=== PATIENT | male | born 1940 | race Caucasian/White ===

== ENCOUNTER 2023-09-20 09:52 | Day surgery (SDC) | payer MEDICARE ==
[2023-09-19 09:31] VITALS: BMI 20.9
[~2023-09-20 09:52] MED LIST: ALPRAZolam 0.25 MG TAB PO PRN; ALPRAZolam 0.5 MG TAB PO PRN; NITROGLYCERIN SL TABS 0.4 MG TAB SUBLINGUAL PRN
[2023-09-20 10:22] LABS: Glucose,Whole Blood 193 mg/dL (70-110)
[2023-09-20] MEDS: SODIUM CHLORIDE 0.9% 1,000 ML in EMPTY BAG 1 BAG IV SCH (10:23)
[2023-09-20] MEDS: IV FLUID CONTINUATION 1,000 ML IV ONE (10:23)
[2023-09-20 10:34] LABS: Basophils # (A) 0.1 k/uL (0-0.2); Basophils % (A) 2 %; Eosinophils # (A) 0.2 k/uL (0-0.7); Eosinophils % (A) 4 %; HCT 37.3 % (39.0-53.0); Lymphocytes # (A) 0.8 k/uL (1.0-4.8); Lymphocytes % (A) 13 %; MCH 31.4 pg (25.0-35.0); MCHC 32.1 g/dL (31.0-37.0); MCV 97.9 fL (80.0-100.0); Mean Platelet Volume 8.1; Monocytes # (A) 0.4 k/uL (0-1.0); Monocytes % (A) 6 %; Neutrophils # (A) 4.2 k/uL (1.3-7.7); Neutrophils % (A) 72 %; Platelet Count 191 k/uL (150-450); RBC 3.82 m/uL (4.30-5.90); RDW 14.9 % (11.5-15.5); WBC 5.8 k/uL (3.8-10.6)
[2023-09-20 10:51] LABS: African American GFR (CKD) 56 (>60 ml/min/1.73 sqM); Anion Gap 8 mmol/L; Blood Urea Nitrogen 35 mg/dL (9-20); Calcium 8.6 mg/dL (8.4-10.2); Carbon Dioxide 23 mmol/L (22-30); Chloride 107 mmol/L (98-107); Glucose 187 mg/dL (74-99); Non-African American GFR(CKD) 48 (>60 ml/min/1.73 sqM); Sodium 138 mmol/L (137-145)
[2023-09-20 10:52] LABS: Potassium 5.2 mmol/L (3.5-5.1)
[2023-09-20] MEDS: hydrALAZINE HCL 20 MG/ML 1 ML VIAL IVP STA ×3 (11:59→21:06)
[2023-09-20] MEDS: LIDOCAINE 1% INJ 10MG/ML (20 ML MDV) SQ ONE (13:05)
[2023-09-20] MEDS: MIDAZOLAM 2 MG/2 ML VIAL IVP ONE (13:07)
[2023-09-20] MEDS: fentaNYL (PF) 50 MCG/1 ML VIAL IVP ONE (13:08)
[2023-09-20] MEDS ORDERED: RX INFO: IV CONTRAST WAS GIVEN 1 EACH MISC MISCELLANE PRN (13:32)
--- NOTE | 2023-09-20 13:37 | P.PCN ---
Date of Procedure: 09/20/23 Operative Findings: CARDIAC CATHETERIZATION PERFORMING PHYSICIAN: Bryan Bosch MD, RPVI PROCEDURE PERFORMED: 1. Selective right and left coronary angiogram and RIDDLE to LAD angiogram 2. Left heart catheterization 3. Ultrasound-guided access of the right common femoral artery and selective right common femoral artery angiogram INDICATION: Unstable angina COMPLICATION: None APPROACH: Right common femoral artery LEVEL OF SEDATION: Moderate with sedation in length of 13 minutes PROCEDURE DESCRIPTION: After obtaining an informed consent, the patient was brought to cardiac laborer chemical processing. Local anesthesia was performed using lidocaine subcutaneously. The right common femoral artery was cannulated using micropuncture technique under ultrasound guidance, the guidewire passed easily, following that we advanced a 6 Rwandan sheath dilator assembly, the wire and dilator were removed and sheath was flushed. Selective right and left coronary angiogram using a 6-Rwandan JR4 and JL catheters. Following that we did left heart catheterization using 6-Rwandan pigtail catheter. The procedure was completed there was no complication. SELECTIVE CORONARY ANGIOGRAM: The right coronary artery: Large-caliber vessel and a dominant vessel. The RCA is occluded in the mi dportion. Left main: Calcified with disease appears to be in the range of 50 to 60% The left circumflex: Large-caliber vessel nondominant vessel with mild disease on The left anterior descending artery: The LAD in the proximal portion has a 50% lesion and subsequently there was competitive flow was seen from the RIDDLE The RIDDLE to LAD is patent HEMODYNAMICS: The LVEDP was about 20 mmHg with no significant gradient was identified across aortic valve CONCLUSION: 1. 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 2. Patent RIDDLE to LAD 3. Occluded right coronary artery POSTPROCEDURE MANAGEMENT: Consider medical treatment at this point
[2023-09-20] MEDS: IOPAMIDOL-370 100ML BTL INTRATHECA ONE (13:40)
[2023-09-20] MEDS: IOPAMIDOL-300 100ML BTL INTRATHECA ONE (13:41)
--- NOTE | 2023-09-20 13:41 | P.PCN ---
Date of Procedure: 09/20/23 Operative Findings: AN ABDOMINAL AORTOGRAM AND BILATERAL LOWER EXTREMITIES RUNOFF PERFORMING PHYSICIAN: Bryan Bosch MD PROCEDURE PERFORMED: 1. An abdominal aortogram 2. Bilateral lower extremities runoff INDICATION: Bilateral lower extremities intermittent claudication and abnormal duplex study COMPLICATION: None LEVEL OF SEDATION: Moderate was sedation length of 10 minutes APPROACH: Right common femoral artery PROCEDURE DESCRIPTION: After obtaining informed consent and explaining the procedure benefits, risks, and complications, the patient was brought to the cardiac field laboratory operator. The right groin was prepped and draped in sterile fashion. The right common femoral artery was cannulated using micropuncture technique, under ultrasound guidance. A micropuncture wire was advanced, and the micropuncture sheath was advanced over the wire, then the micropuncture sheath was exchanged over an 0.35 wire into a 5-Cymro sheath dilator assembly then the wire and dilator were removed and sheath was flushed. We did an abdominal aortogram and bilateral lower extremities runoff using 5- Cymro pigtail catheter using a power injection. The catheter was initially placed at the level of the renal arteries, and it was pulled into above the bifurcation of the aorta into right and left common iliac arteries. The procedure was completed and there was no complications. SELECTIVE PERIPHERAL ANGIOGRAM: The abdominal aorta: Calcified with mild disease only The common iliac arteries: Calcified with mild disease only The external iliac arteries: The right external iliac artery appears to be normal. 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
[2023-09-20] MEDS: hydrALAZINE HCL 20 MG/ML 1 ML VIAL ONE (13:44)
[2023-09-20] MEDS: SODIUM CHLORIDE 0.9% 1,000 ML IV SCH (16:24)
[2023-09-20] MEDS: ASPIRIN 325 MG TAB PO STA (16:24)
[2023-09-20 16:36] VITALS: RESP 16
[2023-09-20 20:57] VITALS: PULSE 78
[2023-09-20] MEDS: ENALAPRILAT 1.25 MG/ML 1 ML VIAL IVP STA (21:06)
[2023-09-20 22:01] VITALS: BP 157/61; TEMP 98.5
== END 2023-09-20 22:21 | disposition home or self-care (01) ==
LOC: CATHCVL 09:52 → 6NMEDSUR 13:35 → CATHCVL 22:21
PROVIDERS: ATTEND Internal Medicine Interventional Cardiology
DX: I25.10 Atherosclerotic heart disease of native coronary artery without angina pectoris (principal); I70.213 Atherosclerosis of native arteries of extremities with intermittent claudication, bilateral legs
CPT/HCPCS: 93459; 75625; 75716; 80048; 85025; C1769 ×2; C1894; J2250; J0360; J2001; Q9967 ×2; J3010; 76937

== ENCOUNTER 2023-10-16 06:57 | Day surgery (SDC) | payer MEDICARE ==
[~2023-10-16 06:57] MED LIST changes: -ALPRAZolam 0.25 MG TAB PO PRN; +ASPIRIN 325 MG TAB PO PRN; +HEPARIN SODIUM,PORCINE (1 ML) 2,500 UNIT in SODIUM CHLORIDE 0.9% 250 ML IRRIGATION PRN; +HEPARIN SODIUM,PORCINE 10,000 UNIT in SODIUM CHLORIDE 0.9% 1,000 ML IRRIGATION PRN; -NITROGLYCERIN SL TABS 0.4 MG TAB SUBLINGUAL PRN; +ZOLPIDEM 5 MG TAB PO PRN
[2023-10-16] MEDS: IV FLUID CONTINUATION 1,000 ML IV ONE (07:09)
[2023-10-16] MEDS: EMPTY BAG 1 BAG with SODIUM CHLORIDE 0.9% 1,000 ML IV SCH (07:09)
[2023-10-16] MEDS: ALPRAZolam 0.25 MG TAB PO PRN (07:20)
[2023-10-16 07:27] LABS: Glucose,Whole Blood 186 mg/dL (70-110)
[2023-10-16] MEDS ORDERED: LIDOCAINE 1% INJ 10MG/ML (20 ML MDV) ONE (14:28)
[2023-10-16] MEDS: MIDAZOLAM 2 MG/2 ML VIAL IVP ONE (14:39)
[2023-10-16] MEDS: LIDOCAINE 1% INJ 10MG/ML (20 ML MDV) SQ ONE (14:40)
[2023-10-16] MEDS ORDERED: niCARdipine 25 MG/10 ML VIAL ONE (15:04)
[2023-10-16] MEDS: HEPARIN SODIUM 1,000 UN/ML (10ML VL) IVP ONE (15:05)
[2023-10-16] MEDS ORDERED: CLOPIDOGREL 75 MG TAB ONE (15:35)
[2023-10-16] MEDS ORDERED: ALPRAZolam 0.25 MG TAB PO PRN (15:38)
[2023-10-16] MEDS ORDERED: NALOXONE 0.4 MG/ML 1 ML VIAL IVP PRN (15:39)
[2023-10-16] MEDS: CLOPIDOGREL 75 MG TAB PO ONE (15:41)
[2023-10-16] MEDS: HEPARIN SODIUM,PORCINE 10,000 UNIT in SODIUM CHLORIDE 0.9% 1,000 ML IRRIGATION ONE (15:44)
[2023-10-16] MEDS: HEPARIN SODIUM,PORCINE (1 ML) 2,500 UNIT in SODIUM CHLORIDE 0.9% 250 ML IRRIGATION ONE (15:45)
[2023-10-16] MEDS ORDERED: SODIUM CHLORIDE 0.9% 1,000 ML IV SCH (16:00)
--- NOTE | 2023-10-16 16:03 | IR ---
EXAMINATION TYPE: IR angio lower extremity RT Intraoperative/procedural fluoroscopic services were pr ovided. CLINICAL INDICATION:Male, 83 years old with history of RIGHT LOWER ANGIOGRAM, 14.5 MINS FLT, 22.3MGY; , [facility] Total fluoroscopy time is 14.5 min. DAP: 2.8 Gycm2 Please see the operative/procedural note for further details.
[2023-10-16] MEDS: hydrALAZINE HCL 20 MG/ML 1 ML VIAL IVP PRN (16:51)
[2023-10-16] MEDS: SODIUM CHLORIDE 0.9% 1,000 ML in EMPTY BAG 1 BAG IV SCH (18:02)
[2023-10-16 20:04] LABS: Glucose,Whole Blood 154 mg/dL (70-110)
[2023-10-16] MEDS ORDERED: metFORMIN 500 MG TAB PO SCH (21:00)
[2023-10-16] MEDS: ATROPINE SULFATE 0.1 MG/ML 10ML SYRINGE ONE (21:09)
[2023-10-16] MEDS: glipiZIDE 10 MG TAB PO SCH (21:18)
[2023-10-16] MEDS: METOPROLOL SUCCINATE (ER) 25 MG TAB.ER.24H PO SCH (21:18)
[2023-10-16] MEDS: ATORVASTATIN 80 MG TAB PO SCH (21:18)
[2023-10-16] MEDS: RANOLAZINE 500 MG TAB.ER.12H PO SCH (21:18)
[2023-10-16] MEDS: MIRTAZAPINE 15 MG TAB PO SCH (21:18)
[2023-10-17 06:07] LABS: Glucose,Whole Blood 92 mg/dL (70-110)
[2023-10-17] MEDS: LEVOTHYROXINE 75 MCG TAB PO SCH (06:51)
[2023-10-17 08:57] VITALS: BP 126/59; PULSE 66; RESP 16; TEMP 97.4
[2023-10-17] MEDS: MAGNESIUM OXIDE 400 MG TAB PO SCH (08:57)
[2023-10-17] MEDS: LINAGLIPTIN 5 MG TABLET PO SCH (08:57)
[2023-10-17] MEDS: CHOLECALCIFEROL 25 MCG (1000 IU) TABLET PO SCH (08:58)
[2023-10-17] MEDS: CLOPIDOGREL 75 MG TAB PO SCH (08:58)
[2023-10-17] MEDS: ASCORBIC ACID 500 MG TAB PO SCH (08:58)
[2023-10-17] MEDS: DAPAGLIFLOZIN PROPANEDIOL 10 MG TABLET PO SCH (08:58)
[2023-10-17] MEDS: ASPIRIN 81 MG PO SCH (08:58)
[2023-10-17] MEDS: VITAMIN E (DL,TOCOPHERYL ACET) 400 UNIT (180 MG) CAP PO SCH (08:58)
[2023-10-17] MEDS ORDERED: CLOPIDOGREL 75 MG TAB PO SCH (09:00)
[2023-10-17] MEDS: MULTIVITAMINS, THERA 1 EACH TAB PO SCH (09:13)
[2023-10-17 09:27] LABS: African American GFR (CKD) 53 (>60 ml/min/1.73 sqM); Non-African American GFR(CKD) 46 (>60 ml/min/1.73 sqM)
--- NOTE | 2023-10-17 21:52 | P.PCN ---
Date of Procedure: 10/16/23 Operative Findings: Percutaneous peripheral arterial intervention Performing physician Bryan Bosch MD Procedure performed Successful angioplasty of the right SFA/popliteal Adjunctive use of IVUS and rotational atherectomy and lithotripsy balloon Right lower extremity angiogram and left common femoral artery angiogram Ultrasound-guided access of the left common femoral artery Indication Symptomatic 83-year-old gentleman who underwent an angiogram that revealed occluded right SFA distally Approach Left common femoral artery Complications None Level of sedation Moderate with sedation length of 64 minutes Procedure description After obtaining informed consent the patient was brought to the cardiac Business Team Leader. The left common femoral artery was cannulated using micropuncture technique under ultrasound guidance and the micropuncture wire passed easily then I placed a 6 Nauruan 70 cm sheath at the left common femoral artery after predilation was performed using 11 cm 6 Nauruan dilator. Subsequently anticoagulation was initiated using heparin with continuous ACT monitoring. Subsequently I did advance a 5 Nauruan rim catheter over a 035 stiff Glidewire and the wire was directed toward the right SFA. The sheath was advanced over the wire and catheter into the right common femoral artery. Right lower extremity angiogram was performed and showed three-vessel runoff below the knee with occluded right SFA and proximal right popliteal. At that point anticoagulation was continued using heparin. I was able to cross the CARDIOLOGY FELLOW of the right SFA and popliteal using 018 wire with a backup support for 8 catheter. Subsequently I did intravascular ultrasound which showed heavily calcified right SFA and right popliteal with diameter around 6 mm. I did orbital atherectomy using the orbital atherectomy device before I did lithotripsy balloon using 5 mm balloon. Subsequently an angiogram was performed and showed adequate angiographic results. I ended the procedure using a drug-coated balloon which was 5 mm. Final angiogram was performed that showed an excellent angiographic results and the procedure was completed with no complication. Subsequently I did exchange the long sheath into a short sheath using a 3 5 stiff Glidewire before I did selective left common femoral artery angiogram Postprocedure management Dual antiplatelet therapy Aggressive cholesterol control Risk factors modification Follow-up with the patient
--- NOTE | 2023-10-17 21:53 | P.DS ---
Providers Attending physician: Bryan Bosch Primary care physician: [facility] Course: The patient is a pleasant 83-year-old gentleman who underwent yesterday successful COAL CHUTE WORKER of the right SFA and right popliteal with a good angiographic results with no complication The patient was seen and evaluated this morning. He is asymptomatic and hemodynamically stable. The left groin is soft and nontender with no bruises The patient is going to be discharged home on dual antiplatelet therapy and I will follow-up with the patient next week in the office Plan - Discharge Summary Discharge Rx Participant: No New Discharge Prescriptions: Continue sitaGLIPtin [Januvia] 100 mg PO DAILY Mirtazapine [Remeron] 7.5 mg PO HS Metoprolol Succinate [Metoprolol Succinate ER] 12.5 mg PO HS Levothyroxine Sodium 150 mcg PO DAILY Clopidogrel [Plavix] 75 mg PO DAILY Cholecalciferol [Vitamin D3 (25 Mcg = 1000 Iu)] 50 mcg PO DAILY Magnesium 250 mg PO DAILY Empagliflozin [Jardiance] 25 mg PO DAILY Atorvastatin [Lipitor] 80 mg PO HS Aspirin [Adult Low Dose Aspirin EC] 81 mg PO DAILY metFORMIN HCL 500 mg PO BID ALPRAZolam [Xanax] 0.25 mg PO DIRECTED PRN PRN Reason: Anxiety glipiZIDE [glipiZIDE ER] 10 mg PO AC-BID Vitamin E (Dl,Tocopheryl Acet) [Vitamin E (400 Iu = 180 mg)] 400 unit PO DAILY Multivitamins, Thera [Multivitamin (formulary)] 1 tab PO DAILY Ascorbic Acid [Vitamin C] 500 mg PO DAILY Ranolazine [Ranolazine ER] 500 mg PO Q12HR Discharge Medication List Aspirin [Adult Low Dose Aspirin EC] 81 mg PO DAILY 09/19/23 [History] Atorvastatin [Lipitor] 80 mg PO HS 09/19/23 [History] Clopidogrel [Plavix] 75 mg PO DAILY 09/19/23 [History] Empagliflozin [Jardiance] 25 mg PO DAILY 09/19/23 [History] Levothyroxine Sodium 150 mcg PO DAILY 09/19/23 [History] Metoprolol Succinate [Metoprolol Succinate ER] 12.5 mg PO HS 09/19/23 [History] Mirtazapine [Remeron] 7.5 mg PO HS 09/19/23 [History] sitaGLIPtin [Januvia] 100 mg PO DAILY 09/19/23 [History] ALPRAZolam [Xanax] 0.25 mg PO DIRECTED PRN 10/15/23 [History] metFORMIN HCL 500 mg PO BID 10/15/23 [History] Ascorbic Acid [Vitamin C] 500 mg PO DAILY 10/16/23 [History] Cholecalciferol [Vitamin D3 (25 Mcg = 1000 Iu)] 50 mcg PO DAILY 10/16/23 [History] Magnesium 250 mg PO DAILY 10/16/23 [History] Multivitamins, Thera [Multivitamin (formulary)] 1 tab PO DAILY 10/16/23 [History] Ranolazine [Ranolazine ER] 500 mg PO Q12HR 10/16/23 [History] Vitamin E (Dl,Tocopheryl Acet) [Vitamin E (400 Iu = 180 mg)] 400 unit PO DAILY 10/16/23 [History] glipiZIDE [glipiZIDE ER] 10 mg PO AC-BID 10/16/23 [History] Follow up Appointment(s)/Referral(s): Bryan Bosch MD [STAFF PHYSICIAN] - 1 Week (Office is closed. Please call to schedule follow up appoitment) Patient Instructions/Handouts: Peripheral Artery Disease (DC), Moderate Sedation (DC), Peripheral Vascular Angioplasty (DC), Peripheral Vascular Stent Placement (DC) Activity/Diet/Wound Care/Special Instructions: NO METFORMIN FOR TWO DAYS. Discharge Disposition: HOME SELF-CARE
== END 2023-10-17 10:01 | disposition home or self-care (01) ==
LOC: CATHCVL 06:57 → 3SCARD 15:47 → CATHCVL 10-17 10:01
PROVIDERS: ATTEND Internal Medicine Interventional Cardiology
DX: I73.9 Peripheral vascular disease, unspecified (principal); I25.10 Atherosclerotic heart disease of native coronary artery without angina pectoris; Z79.02 Long term (current) use of antithrombotics/antiplatelets; Z79.82 Long term (current) use of aspirin; Z79.84 Long term (current) use of oral hypoglycemic drugs; Z79.890 Hormone replacement therapy; Z79.899 Other long term (current) drug therapy
CPT/HCPCS: 37252; 82565; C1894 ×2; C1769 ×5; C1714; C1753; C9766; C1725; C2623; J2250; J0360; J1644 ×3; J2001